=== PATIENT | female | born 1990 | race Caucasian/White ===

== ENCOUNTER 2016-12-02 08:57 | Emergency (ER) | payer OTHER ==
[~2016-12-02] VITALS: Ht 165.1 cm; Wt 78.0 kg
[~2016-12-02 08:57] MED LIST: ADVIL200 MG PO; ANAPROX DS550 M1 PO; ASPIR 8181 M1 PO; BUTALB-APAP-CA1 EACH PO; EXFORGE HCT 5-1 EACH PO; FLEXERIL5 MG PO; FLONASE16 G1 BOTH NARES; INDERAL LA120 MG PO; LABETALOL HCL200 MG PO; LEXAPRO10 MG PO; LIDOCAINE700 MG TD; LORAZEPAM0.5 MG PO; LORTAB 5-325 M1 EACH PO; MOTRIN800 MG PO; NEXIUM 24HR20 MG PO; NIFEDIPINE ER30 MG PO; NORCO 5/3251 TABLET PO; PRENA1 CHEW TA1.4 MG PO; PROPRANOLOL HCL60 M1 PO; TOPAMAX25 MG PO; TRAZODONE HCL50 MG PO; TYLENOL REGULA325 MG PO; ZOFRAN4 MG PO
[2016-12-02] MEDS ORDERED: TRAMADOL HCL50 MG PO (09:24)
[2016-12-02 09:47] VITALS: BP 139/105
== END 2016-12-02 09:49 | disposition home or self-care (01) ==
LOC: EME 08:57
DX: S93.402A Sprain of unspecified ligament of left ankle, initial encounter (principal); X50.1XXA Overexertion from prolonged static or awkward postures, initial encounter; I10 Essential (primary) hypertension; F17.200 Nicotine dependence, unspecified, uncomplicated
CPT/HCPCS: 99281; 99284

== ENCOUNTER 2016-12-27 02:44 | Emergency (ER) | payer OTHER ==
[~2016-12-27] VITALS: Ht 165.1 cm; Wt 77.5 kg
[~2016-12-27 02:44] MED LIST changes: +TRAMADOL HCL50 MG PO
[2016-12-27] MEDS ORDERED: ROBAXIN750 MG PO (03:24)
[2016-12-27] MEDS ORDERED: CLEOCIN150 MG PO (03:24)
[2016-12-27] MEDS ORDERED: MOBIC15 MG PO (03:24)
[2016-12-27 03:40] VITALS: BP 162/118
== END 2016-12-27 03:41 | disposition home or self-care (01) ==
LOC: EME 02:44
DX: R68.84 Jaw pain (principal); K02.9 Dental caries, unspecified; I10 Essential (primary) hypertension; F17.200 Nicotine dependence, unspecified, uncomplicated
CPT/HCPCS: 99281; 99283

== ENCOUNTER 2016-12-29 22:29 | Emergency (ER) | payer OTHER ==
[~2016-12-29] VITALS: Ht 165.1 cm; Wt 77.8 kg
[~2016-12-29 22:29] MED LIST changes: +CLEOCIN150 MG PO; +MOBIC15 MG PO; +ROBAXIN750 MG PO
[2016-12-29] MEDS ORDERED: HYDROCHLOROTHIA25 MG PO (22:53)
[2016-12-30] MEDS ORDERED: AMLODIPINE BESY10 MG PO (00:33)
[2016-12-30] MEDS ORDERED: NORCO 5/3251 TABLET PO (00:33)
[2016-12-30 00:43] VITALS: BP 156/103
== END 2016-12-30 00:44 | disposition home or self-care (01) ==
LOC: EME 22:29
DX: M26.629 Arthralgia of temporomandibular joint, unspecified side (principal); I16.0 Hypertensive urgency; I10 Essential (primary) hypertension; F17.200 Nicotine dependence, unspecified, uncomplicated; F32.9 Major depressive disorder, single episode, unspecified; G43.909 Migraine, unspecified, not intractable, without status migrainosus; F41.9 Anxiety disorder, unspecified
CPT/HCPCS: 99281; 99284

== ENCOUNTER 2017-07-02 09:53 | Emergency (ER) | payer OTHER ==
[~2017-07-02] VITALS: Ht 165.1 cm; Wt 74.1 kg
[~2017-07-02 09:53] MED LIST changes: +AMLODIPINE BESY10 MG PO; +HYDROCHLOROTHIA25 MG PO; +NEURONTIN300 MG PO
[2017-07-02 13:15] LABS: HEMATOCRIT 42.5 % (36.0-46.0); MCH 31.5 PG (29.0-34.0); MCHC 34.4 G/DL (30.0-36.0); MCV 91.6 FL (83-99); MEAN PLAT.VOLUME 10.4 uM^3 (9.5-12.4); PLATELET COUNT 294 K/uL (156-360); RBC DIS.WIDTH-CV 12.3 % (11.8-14.6); RBC DIS.WIDTH-SD 41.1 % (39-53); RED BLOOD COUNT 4.64 M/uL (3.80-5.20); WHITE BLOOD COUNT 11.9 K/uL (4.1-10.2)
[2017-07-02 13:23] LABS: CHLORIDE 106 mEq/L (99-109); POTASSIUM 3.8 mEq/L (3.7-5.4); SODIUM 141 mEq/L (136-147)
[2017-07-02 13:26] LABS: GLUCOSE 115 mg/dL (70-99)
[2017-07-02 13:27] LABS: ANION GAP 9 MEQ/L (2-14)
[2017-07-02 13:28] LABS: TOTAL BILIRUBIN 0.3 mg/dL (0.0-1.0)
[2017-07-02 13:29] LABS: ALKALINE PHOSPHATASE 66 IU/L (3-129); GFR ESTIMATE (CALCULATED) > 59 mL/min/
[2017-07-02 13:30] LABS: UREA NITROGEN (BUN) 9 mg/dL (9-23)
[2017-07-02 13:40] LABS: QUANTITATIVE HCG < 4.0 MIU/ML
[2017-07-02 14:05] LABS: ADD MIUA? YES; BILIRUBIN NEGATIVE; BLOOD LARGE; COLOR COLORLESS ((YELLOW)); GLUCOSE (STRIP) NEGATIVE; KETONES NEGATIVE; LEUKOCYTES NEGATIVE; NITRITE NEGATIVE; PROTEIN (STRIP) NEGATIVE; SPECIFIC GRAVITY 1.002 (1.000-1.030); UROBILINOGEN 0.2 MG/DL (0.2-1.0)
[2017-07-02 14:08] LABS: BACTERIA NONE SEEN /HPF; EPITHELIAL CELLS RARE /HPF; MUCUS NONE SEEN /LPF; UCUL ADDED? NO; WHITE BLOOD CELLS 0-5 /HPF (0-5)
[2017-07-02] MEDS ORDERED: FLEXERIL10 MG PO (14:24)
[2017-07-02] MEDS ORDERED: MOTRIN600 MG PO (14:25)
[2017-07-02 15:01] VITALS: BP 148/87
== END 2017-07-02 15:03 | disposition home or self-care (01) ==
LOC: EME 09:53
PROVIDERS: Nurse Practitioner Family
DX: M79.661 Pain in right lower leg (principal); R31.9 Hematuria, unspecified; M54.5 Low back pain; I10 Essential (primary) hypertension; F17.210 Nicotine dependence, cigarettes, uncomplicated; Z88.0 Allergy status to penicillin; Z88.8 Allergy status to other drugs, medicaments and biological substances
CPT/HCPCS: 80053; 81003; 84702; 85027; 93971; 99281; 99283

== ENCOUNTER 2018-03-27 01:38 | Emergency (ER) | payer OTHER ==
[~2018-03-27] VITALS: Ht 167.6 cm; Wt 70.8 kg
[~2018-03-27 01:38] MED LIST changes: +FLEXERIL10 MG PO; +MOTRIN600 MG PO
[2018-03-27] MEDS ORDERED: ROBAXIN750 MG PO (03:08)
[2018-03-27 03:24] VITALS: BP 158/86
== END 2018-03-27 03:25 | disposition home or self-care (01) ==
LOC: EME 01:38
DX: M54.5 Low back pain (principal); G89.29 Other chronic pain; F17.200 Nicotine dependence, unspecified, uncomplicated; Z88.0 Allergy status to penicillin; Z88.8 Allergy status to other drugs, medicaments and biological substances
CPT/HCPCS: 99281; 99284; J1885